=== PATIENT | female | born 1935 | race Caucasian/White ===

== ENCOUNTER 2022-12-29 14:27 | Emergency (ER) | payer OTHER ==
[~2022-12-29] VITALS: Ht 154.9 cm; Wt 86.2 kg
[~2022-12-29 14:27] MED LIST: ACET325T GT; AMIN30LI2 GT; ASCO500T20 GT; CALMO120 TP; DOXY100C PO; GLUC1KIT IM; HYDR-3610 GT; INSU100V11 SQ; LEVE500T9 GT; LEVO25TA7 GT; LIP40 GT; LOPE2CAP PO; METO-290 GT; METO25TA6 GT; MULT9LIQ GT; OMEP20CA15 GT; RISP0.5T5 GT; RIVA15TA GT; ROCPM1 IV; ZINC220T3 GT
--- NOTE | 2022-12-29 14:38 | NUR ---
PT CONSTANZA VAUGHN FROM [facility], STAFF STATES PT PULLED OUT GTUBE. VSS. PT PLACED IN BED 3 AND REPORT GIVEN TO JOAN HAWKINS. VSS
[2022-12-29 14:39] VITALS: BP_SYST 193
[2022-12-29] MEDS ORDERED: GASTROGRAFIN 120 ML ONE (14:46)
--- NOTE | 2022-12-29 15:03 | NUR ---
DR RUSSELL INSERTED SIZE 18 GTUBE. PLACEMENT CONFIRMED VIA XRAY. [facility] CALLED AND CREW IS STILL IN ED, WILL TRANSPORT PT BACK TO [facility]. THIS RN CALLED SNF TO INFORM STAFF OF PT'S STATUS, UNABLE TO REACH ANY STAFF AFTER MULTIPLE CALLS. PT IN AMBULANCE STRETCHER, STABLE FOR TRANSPORT
[2022-12-29 15:40] VITALS: BP_SYST 132
== END 2022-12-29 16:00 ==
LOC: SED 14:27
DX: Z43.1 Encounter for attention to gastrostomy (principal); Z88.3 Allergy status to other anti-infective agents; Z79.4 Long term (current) use of insulin; Z79.899 Other long term (current) drug therapy
CPT/HCPCS: 99284; 43762; 74240; Q9963

== ENCOUNTER 2023-01-14 14:35 | Emergency (ER) | payer OTHER ==
[~2023-01-14] VITALS: Ht 165.1 cm; Wt 79.4 kg
[2023-01-14 14:59] VITALS: BP_SYST 146
[2023-01-14] MEDS ORDERED: GASTROGRAFIN 120 ML ONE (15:12)
[2023-01-14 18:49] VITALS: BP_SYST 146
== END 2023-01-14 16:22 ==
LOC: SED 14:35
DX: Z43.1 Encounter for attention to gastrostomy (principal); Z79.4 Long term (current) use of insulin; Z88.3 Allergy status to other anti-infective agents; Z79.899 Other long term (current) drug therapy
CPT/HCPCS: 99284; 43762; 74240; Q9963